=== PATIENT | male | born 1960 | race Two or more races ===

== ENCOUNTER 2021-02-03 10:30 | Inpatient (IN) | payer OTHER ==
[~2021-02-03] VITALS: Ht 175.3 cm; Wt 56.7 kg
[~2021-02-03 10:30] MED LIST: LATANOPROST2.5 ML IO
[2021-02-03] MEDS ORDERED: XALATAN (14:06)
[2021-02-03] MEDS ORDERED: [UNRECOGNIZED DRUG - OTHER] (14:07)
[2021-02-09] MEDS ORDERED: LATANOPROST2.5 ML OP (13:53)
[2021-02-09] MEDS ORDERED: BETIMOL5 M1 OP (13:53)
== END 2021-02-14 15:47 | disposition home or self-care (01) | DRG 331 ==
LOC: SURH 02-06 10:30 → O/R 02-09 10:45 → SURG 02-09 19:40
PROVIDERS: ADMIT Colon & Rectal Surgery; ATTEND Colon & Rectal Surgery
PROC: 0DTN0ZZ Resection of Sigmoid Colon, Open Approach (ICD-10-PCS; 2021-02-09)
PROC: 0DJD8ZZ Inspection of Lower Intestinal Tract, Via Natural or Artificial Opening Endoscopic (ICD-10-PCS; 2021-02-09)
PROC: 3E0F7SF Introduction of Other Gas into Respiratory Tract, Via Natural or Artificial Opening (ICD-10-PCS; 2021-02-09)
PROC: 4A1BXSH Monitoring of Gastrointestinal Vascular Perfusion using Indocyanine Green Dye, External Approach (ICD-10-PCS; 2021-02-09)
PROC: 0DTP0ZZ Resection of Rectum, Open Approach (ICD-10-PCS; principal; 2021-02-09 09:00)
DX: K57.32 Diverticulitis of large intestine without perforation or abscess without bleeding (principal); K63.5 Polyp of colon; R10.32 Left lower quadrant pain; Z20.822 Contact with and (suspected) exposure to COVID-19

== ENCOUNTER 2021-02-04 08:26 | Day surgery (SDC) | payer OTHER ==
[~2021-02-04 08:26] MED LIST changes: +XALATAN; +[UNRECOGNIZED DRUG - OTHER]
== END 2021-02-04 11:50 | disposition home or self-care (01) ==
LOC: AMB-ENDOS 08:26
PROVIDERS: ATTEND Colon & Rectal Surgery
DX: D12.3 Benign neoplasm of transverse colon (principal); K64.8 Other hemorrhoids; Z20.822 Contact with and (suspected) exposure to COVID-19; Z12.11 Encounter for screening for malignant neoplasm of colon

== ENCOUNTER 2021-09-02 10:22 | Day surgery (SDC) | payer OTHER ==
[~2021-09-02 10:22] MED LIST changes: +BETIMOL5 M1 OP; +LATANOPROST2.5 ML OP
== END 2021-09-02 16:30 | disposition home or self-care (01) ==
LOC: AMB-ENDOS 10:22
PROVIDERS: ATTEND Colon & Rectal Surgery
DX: K63.5 Polyp of colon (principal); I10 Essential (primary) hypertension; Z86.010 Personal history of colon polyps; K57.30 Diverticulosis of large intestine without perforation or abscess without bleeding; Z88.0 Allergy status to penicillin; Z87.19 Personal history of other diseases of the digestive system; Z20.822 Contact with and (suspected) exposure to COVID-19